=== PATIENT | male | born 1935 | race Caucasian/White ===

== ENCOUNTER 2022-12-21 10:15 | Observation (INO) ==
--- NOTE | 2022-12-21 18:43 | History & Physical Report ---
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 daily -noted this is different from his external pharmacy list but confirmed by his Continue 0.2 mg/h Nitropatch. Place on at 7 AM and take off at 7 PM. (4) Type 2 diabetes mellitus: Plan: HbA1C with AM Labs Hold metformin (5) Coronary artery disease: Plan: Per his he had stent placed in Jul 2022 although records of this are not available on admission Restart Eliquis and Plavix when able from urological perspective I am unclear on the exact reason for his Eliquis based on the patient, his and ER notes I do not see a medical condition he requires this for. Plan VTE Prophylaxis - SCDs Diet - T2DM Disposition - admit to med/surg Admission and Anticipated Discharge Date Admission Date: December 21, 2022 History of Present Illness Chief Complaint: Hematuria Primary Care Provider: Ac Newell Troy Kay is an 87 year old male who is a transfer from [facility] due to hematuria. The patient underwent cystoscopy on December [address] Schmidt due to urine retention. He is unclear how long he held his Eliquis and Plavix for around the procedure. He was informed to start continuous intermittent catheterization following this procedure which she has been forming twice a day. He reports his urine is usually red doing this. However last night he started to pass clots and the end of his penis was painful with dysuria. Therefore he went to [facility] this morning where a Brown catheter was placed and was reportedly started on continuous bladder irrigation. Urinalysis was taken which was bloody with 3+ protein, 3+ blood, nitrites positive, 1+ bilirubin, greater than 100 red blood cells, 10-15 white blood cells, 2-5 epithelial cells, few bacteria. Urine culture was sent and pending. He was given both ciprofloxacin 500 mg tablet and ceftriaxone 2 g IV for antibiotic prophylaxis. The ER physician informed me he had spoken to urology (Dr Mccormack) here and that urology which the patient transferred under the medicine team. The patient has been kept n.p.o. all day without IV fluids. He reports being on Eliquis for the last 3 to 4 months but is unable to tell me of the medical condition for which he is on this other than describing a leaky heart valve. He reports this was stopped for 2 days before cardiac catheteriza tion in July 2022 when a stent was placed. 1 to 2 days following this he was diagnosed with a stroke therefore is very concerned about coming off anticoagulation. He is unclear on his medications however I confirmed them with his over the phone. His is adamant he takes 40 mg of furosemide although the external medication reconciliation suggest that should be 20 mg. Medication list was clearly incorrect from outside emergency room with him taking Brilinta (most recently was prescribed clopidogrel and confirmed with his ), both atorvastatin and pravastatin and alendronate (not prescribed in the last year and confirmed not taking with his ). 0.2 mg/h (rather than 0.1) nitroglycerin patch confirmed with external medication reconciliation. Allergies Allergy/AdvReac Type Severity Reaction Status Date / Time No Known Allergies Unverified 03/27/10 13:01 Home Medications Medication Instructions Recorded Confirmed Type clopidogrel 75 mg tablet 75 mg PO DAILY 11/25/22 12/21/22 History magnesium 200 mg tablet 400 mg PO DAILY 11/25/22 12/21/22 History metformin 500 mg tablet,extended 500 mg PO DAILY 11/25/22 12/21/22 History release 24 hr tamsulosin 0.4 mg capsule 0.4 mg PO DAILY 11/25/22 12/21/22 History furosemide 20 mg tablet 40 mg PO DAILY 11/27/22 12/21/22 History apixaban 5 mg tablet 5 mg PO BID 12/21/22 12/21/22 History atorvastatin 80 mg tablet 80 mg PO HS 12/21/22 12/21/22 History nitroglycerin 0.2 mg/hr 1 patch topical DAILY 12/21/22 12/21/22 History transdermal 24 hour patch Past Med/Surg History Medical History Coronary artery disease History of CVA (cerebrovascular accident) History of prostate cancer Family History Sister Lung cancer Social History Smoking Status: Former smoker Hx Alcohol Use: Yes marital status: Review of Systems Review of Systems: All systems reviewed & are unremarkable except as noted in HPI & below Physical Exam Constitutional: WD/WN, vitals as above Eyes: + anicteric sclerae; normal pupil size ENMT: external ear and nose normal, oropharynx normal Respiratory: normal respiratory effort, lungs clear to auscultation Cardiovascular: RRR, no murmur, no edema Gastrointestinal (Abdomen): normal bowel sounds, soft, nontender, no hepatosplenomegaly Musculoskeletal: no cyanosis or clubbing, extremities motor strength 5/5 Skin: no rashes, warm and dry Neurologic: moves all extremities and awake; not confused Psychiatric: A+Ox3, euthymic affect Results & Data Results & Data ([facility]) Laboratory Results Abnormal lab results 12/21/22 12/21/22 12/21/22 Range/Units 18:49 18:49 18:49 RBC 3.22 L (4.70-6.10) M/uL Hgb 9.8 L (14.0-18.0) g/dl Hct 29.3 L (42.0-52.0) % MPV 8.6 L (9.4-12.4) fL Neut # (Auto) 6.96 H (1.40-6.50) K/uL Hill # (Auto) 1.00 H (0.11-0.59) K/uL PT 12.5 H (9.0-12.0) Seconds INR 1.2 H (0.9-1.1) Glucose 133 H (70-99(Fasting)) mg/dl Code Status & VTE Plan VTE Prophylaxis Plan VTE Prophylaxis will be ordered: No Reason for no VTE drug order: Contraindicated PG Care Time/CCT Total # of Minutes Spent Total Time Spent with Patient: Total time spent is greater than 50% in coordination of care (as documented) at patient's floor/unit and/or counseling patient: Coding Level of Care Code 85762 INT INP/OBS CARE 3/75MIN Diagnoses Hematuria R31.9 Urinary retention R33.9 Essential (primary) hypertension I10 Type 2 diabetes mellitus E11.9 Coronary artery disease I25.10
[2022-12-21 19:15] LABS: Basophils # (auto) 0.03 K/uL (0-0.2); Basophils % (auto) 0.3 %; Eosinophils # (auto) 0.07 K/uL (0-0.50); Eosinophils % (auto) 0.7 %; Hematocrit (blood only) 29.3 % (42.0-52.0); Hemoglobin 9.8 g/dl (14.0-18.0); Immature Granulocytes # (auto) 0.04 K/uL (0.01-0.20); Immature Granulocytes % (auto) 0.4 %; Lymphocytes # (auto) 1.59 K/uL (1.2-3.4); Lymphocytes % (auto) 16.4 %; Mean Corpuscular Hemoglobin 30.4 pg (25.0-34.0); Mean Corpuscular Hgb Conc 33.4 g/dL (32.0-36.0); Mean Platelet Volume 8.6 fL (9.4-12.4); Monocytes % (auto) 10.3 %; Neutrophils # (auto) 6.96 K/uL (1.40-6.50); Neutrophils % (auto) 71.9 %; Platelet Count 310 K/uL (130-400); RDW Coefficient of Variation 12.6 % (11.5-14.5); RDW Standard Deviation 41.5 fL (36.4-46.3); Red Blood Count 3.22 M/uL (4.70-6.10); White Blood Count 9.69 K/ul (4.8-10.8)
[2022-12-21 19:34] LABS: Alanine Aminotransferase 11 U/L (7-52); Albumin Globulin Ratio 1.2 (0.9-2); Albumin Level 3.7 gm/dl (3.4-5.0); Alkaline Phosphatase 49 U/L (34-104); Anion Gap 5 (3-11); Aspartate Aminotransferase 20 U/L (13-39); BUN Creatinine Ratio 18.9 (10-20); Bilirubin,Total 0.9 mg/dl (0.2-1.0); Blood Urea Nitrogen 23 mg/dl (6-23); Calcium 8.9 mg/dl (8.5-10.1); Carbon Dioxide 31 mmol/L (21-32); Chloride 102 mmol/L (98-107); Est GFR (African American) 62.3 ml/min; Est GFR (Non-African American) 53.7 ml/min; Globulin 3.1 gm/dl (2.5-4.0); Glucose 133 mg/dl (70-99(Fasting)); Potassium 3.6 mmol/L (3.5-5.1); Sodium 138 mmol/L (136-145); Total Protein 6.8 gm/dl (6.0-8.3)
[2022-12-21 19:47] LABS: INR 1.2 (0.9-1.1); Partial Thromboplastin Time 26.4 Seconds (21.0-31.0); Prothrombin Time 12.5 Seconds (9.0-12.0)
[2022-12-21] MEDS: LACTATED RINGER'S 1,000 ML IV SCH (19:48)
[2022-12-21] MEDS ORDERED: DEXTROSE 50% 50 ML SYRINGE IV PRN (20:14)
[2022-12-21] MEDS ORDERED: CARBOHYDRATES FOR HYPOGLYCEMIA PO PRN (20:14)
[2022-12-21] MEDS ORDERED: GLUCAGON FOR INJ 1 MG VIAL SQ PRN (20:14)
[2022-12-21] MEDS ORDERED: GLUCOSE 40% GEL 15 GM TUBE PO PRN (20:14)
[2022-12-21] MEDS ORDERED: GLUCOSE 10 TAB/TUBE PO PRN (20:14)
[2022-12-21] MEDS: INSULIN ASPART PER UNIT SC SCH (20:42)
[2022-12-21] MEDS: ATORVASTATIN 40 MG TAB PO SCH (20:44)
[2022-12-21] MEDS ORDERED: TAMSULOSIN HCL 0.4 MG CAP PO ONE (20:54)
[2022-12-22 04:21] LABS: Bacteria Urine Automated Negative (Negative); Bilirubin Urine Negative (Negative); Blood Urine 3+ (Negative); Epithelial Cell Urine Auto >30 /lpf (0-5); Glucose Urine UA Negative (Negative); Ketones Urine Negative (Negative); Leukocyte Esterase Urine 2+ (Negative); Nitrite Urine Negative (Negative); RBC Urine Automated >30 /hpf (0-4); Specific Gravity Urine 1.018 (1.000-1.030); Urobilinogen Urine Negative (Negative); pH Urine 7.5 (4.5-7.5)
[2022-12-22 04:22] LABS: Appearance Urine Turbid (Clear); Color Urine Red; Protein Urine 1+ (Negative)
[2022-12-22 04:25] LABS: Cast Urine Automated 0 /lpf (0-5)
[2022-12-22] MEDS: LACTATED RINGER'S 1,000 ML IV SCH ×3 (04:33→19:04)
[2022-12-22 07:07] LABS: Hematocrit (blood only) 26.3 % (42.0-52.0); Mean Corpuscular Hemoglobin 30.4 pg (25.0-34.0); Mean Corpuscular Hgb Conc 34.2 g/dL (32.0-36.0); Mean Corpuscular Volume 88.9 fL (80.0-100.0); Mean Platelet Volume 8.6 fL (9.4-12.4); Platelet Count 291 K/uL (130-400); RDW Coefficient of Variation 12.6 % (11.5-14.5); RDW Standard Deviation 40.9 fL (36.4-46.3); Red Blood Count 2.96 M/uL (4.70-6.10); White Blood Count 8.23 K/ul (4.8-10.8)
[2022-12-22] MEDS: NITROGLYCERIN 0.2 MG/HR PATCH TD SCH (08:15)
[2022-12-22] MEDS: FUROSEMIDE 40 MG TAB PO SCH (08:15)
[2022-12-22] MEDS: MAGNESIUM OXIDE 400 MG TAB PO SCH (08:15)
[2022-12-22] MEDS: TAMSULOSIN HCL 0.4 MG CAP PO SCH (08:15)
[2022-12-22] MEDS: INSULIN ASPART PER UNIT SC SCH ×4 (08:51→20:53)
[2022-12-22 09:02] LABS: Estimated Average Glucose 143 mg/dl; Hemoglobin A1C 6.6 % (4.5-5.6)
[2022-12-22 09:10] LABS: BUN Creatinine Ratio 18.2 (10-20); Calcium 8.2 mg/dl (8.5-10.1); Creatinine Clr Calc Pharmacy 52.3 ml/min; Est GFR (African American) 70.6 ml/min; Est GFR (Non-African American) 60.9 ml/min; Potassium 3.6 mmol/L (3.5-5.1)
[2022-12-22] MEDS: cefTRIAXone SODIUM 2,000 MG in DEXTROSE 5% 50 ML IV SCH (09:55)
--- NOTE | 2022-12-22 10:43 | Electrocardiogram Report ---
Test Reason : Blood Pressure : / mmHG Vent. Rate : 055 BPM Atrial Rate : 220 BPM P-R Int : 000 ms QRS Dur : 112 ms QT Int : 486 ms P-R-T Axes : 000 039 028 degrees QTc Int : 464 ms Atrial fibrillation with slow ventricular response Incomplete right bundle branch block Nonspecific ST abnormality Abnormal ECG When compared with ECG of 11-MAR-2007 13:09, Atrial fibrillation has replaced Sinus rhythm Incomplete right bundle branch block is now Present Confirmed by Charan Rivera ([id number]) on 12/22/2022 10:43:38 AM Referred By: Satinder Rosales Confirmed By:Charan Rivera
--- NOTE | 2022-12-22 11:11 | Urology Consultation ---
Date of Consultation December 22, 2022 Assessment & Plan (1) Hematuria: (2) Urinary retention: (3) History of prostate cancer: Plan Prostate cancer status post radiation; urinary retention; hematuria in the setting of full anticoagulation and clean intermittent catheterization Currently holding anticoagulation and antiplatelet therapy Marquis catheter in place and now draining clear urine He feels well overall and I believe he is stable for discharge home I would like to continue holding his anticoagulation/antiplatelet therapy for an additional 24 hours He will be seen in our office as an outpatient for possible voiding trial/resumption of CIC. Unfortunately, there will have to be a significant debate about the best way to manage his chronic urinary retention as his prior radiation and current medication regimen will put him at extremely high risk for recurrent bleeding History of Present Illness Attending Physician: Kwasi Quinn History of Present Illness 87-year-old gentleman with a history of radiation treatment for prostate cancer as well as urinary retention Has been performing clean intermittent catheterization but had difficulty passing a catheter Friday evening into Friday morning He developed substantial hematuria Presented to [facility] and had a Marquis catheter inserted He was subsequently transferred to [facility] Although he had a drop in his hemoglobin, he has subsequently had resolution of the hematuria and has clear urine now draining He is hemodynamically stable He is on apixaban and Plavixthese have been held for the past 24 hours He feels well overall and denies any discomfort from the catheter Allergies Allergy/AdvReac Type Severity Reaction Status Date / Time No Known Allergies Unverified 03/27/10 13:01 Home Medications Medication Instructions Recorded Confirmed Type clopidogrel 75 mg tablet 75 mg PO DAILY 11/25/22 12/21/22 History magnesium 200 mg tablet 400 mg PO DAILY 11/25/22 12/21/22 History metformin 500 mg tablet,extended 500 mg PO DAILY 11/25/22 12/21/22 History release 24 hr tamsulosin 0.4 mg capsule 0.4 mg PO DAILY 11/25/22 12/21/22 History furosemide 20 mg tablet 40 mg PO DAILY 11/27/22 12/21/22 History apixaban 5 mg tablet 5 mg PO BID 12/21/22 12/21/22 History atorvastatin 80 mg tablet 80 mg PO HS 12/21/22 12/21/22 History nitroglycerin 0.2 mg/hr 1 patch topical DAILY 12/21/22 12/21/22 History transdermal 24 hour patch Patient History Medical History Coronary artery disease History of CVA (cerebrovascular accident) History of prostate cancer Family History Sister Lung cancer Social History Smoking Status: Never smoker Hx Alcohol Use: Yes Alcohol type: beer Hx Substance Use: No Preferred Language: Estonian Communication Ability: Effective Merchandise Buyer Required: No Beliefs That Will Affect Care: None marital status: Current Living Situation: Spouse Other Information That Helps Us Care for You: Yes Feels Safe at Home: Yes Safety Concerns: Feels Safe At This Time Assistive Devices: Cane Review of Systems Constitutional: no fever, no chills and no fatigue Eyes: no worsening vision Ear, Nose, Mouth, Throat: no facial pain and no pain with swallowing Respiratory: no cough and no dyspnea Cardiovascular: no chest pain and no palpitations Gastrointestinal: no abdominal pain, no nausea and no vomiting Genitourinary: + as per Subjective / HPI Musculoskeletal: no back pain Integumentary: no rash and no urticaria Neurologic: no gait abnormality and no unsteadiness Psychiatric: no behavioral changes and no depression Endocrine: no fatigue Physical Exam Constitutional: well developed and well nourished Neck: neck nontender Respiratory: normal respiratory effort; no respiratory distress and does not use accessory muscles Cardiovascular: Extremities: no edema Gastrointestinal (Abdomen): Inspection/Auscultation: abdomen normal to inspection Percussion/Palpation: abdomen soft; abdomen nontender and no guarding Musculoskeletal: Head/Neck/Chest: normocephalic and head atraumatic Extremities: extremities normal to inspection Skin: no rashes and no lesions Trauma: no evidence of skin trauma Neurologic: awake; not obtunded Speech / Cognition: normal speech Motor/Sensory: no tremor Psychiatric: Orientation: alert and oriented x 3 Genitourinary: no CVA tenderness Lymphatic: no lymphadenopathy Results & Data ([facility]) Vital Signs (Past 12 Hours) Vital Signs Temp Pulse Resp BP Pulse Ox O2 Del Method 12/22/22 07:33 36.9 C 95 H 18 146/82 H 95 Room Air 12/22/22 00:17 37.0 C 65 18 155/75 H 96 Room Air PG Care Time/CCT Total # of Minutes Spent Total Time Spent with Patient: Total time spent is greater than 50% in coordination of care (as documented) at patient's floor/unit and/or counseling patient: Coding Level of Care Code 87647 IN/OBS CONSULT LVL 3,45M Diagnoses Hematuria R31.9 Urinary retention R33.9 History of prostate cancer Z85.46
[2022-12-22] MEDS ORDERED: CLOPIDOGREL BISULFATE 75 MG TAB PO ONE (11:42)
--- NOTE | 2022-12-22 11:56 | Hospitalist Progress Note ---
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 Given that patient has a high chance of rebeeding,and anemia patient will remain in the hospital. Continue brown catheter - will defer continuous bladder irrigation to urology Consult urology for ongoing management -will hold eliquis in the short term. Patient is unsure why he is on eliquis. records that are in the system are not clear. Urology is aware that patient will be on plavix and agrees to cancel discharge. (2) Urinary retention: Plan: Brown catheter placed in [place] ER 12/21/22 [facility] BID prior to this (3) Essential (primary) hypertension: Plan: Continue furosemide 40 mg p.o. daily -noted this is different from his external pharmacy list but confirmed by his Continue 0.2 mg/h Nitropatch. Place on at 7 AM and take off at 7 PM. (4) Type 2 diabetes mellitus: Plan: HbA1C with AM Labs Hold metformin (5) Coronary artery disease: Plan: Per his he had stent placed in Jul 2022 although records of this are not available on admission Restart Plavix Hold eliquis I am unclear on the exact reason for his Eliquis based on the patient, his and ER notes I do not see a medical condition he requires this for. Plan VTE Prophylaxis - SCDs Diet - T2DM Disposition - admit to med/surg Admission and Anticipated Discharge Date Admission Date: December 21, 2022 Subjective Patient has no new complaints. Review of Systems Review of Systems: All systems reviewed & are unremarkable except as noted in HPI & below Physical Exam Constitutional: WD/WN, vitals as above Eyes: + anicteric sclerae; normal pupil size ENMT: external ear and nose normal, oropharynx normal Respiratory: normal respiratory effort, lungs clear to auscultation Cardiovascular: RRR, no murmur, no edema Gastrointestinal (Abdomen): normal bowel sounds, soft, nontender, no hepato splenomegaly Musculoskeletal: no cyanosis or clubbing, extremities motor strength 5/5 Skin: no rashes, warm and dry Neurologic: moves all extremities and awake; not confused Psychiatric: A+Ox3, euthymic affect Results & Data Results & Data ([facility]) Vital Signs (Past 12 Hours) Vital Signs Temp Pulse Resp BP Pulse Ox O2 Del Method 12/22/22 07:33 36.9 C 95 H 18 146/82 H 95 Room Air 12/22/22 00:17 37.0 C 65 18 155/75 H 96 Room Air PG Care Time/CCT Total # of Minutes Spent Total Time Spent with Patient: Total time spent is greater than 50% in coordination of care (as documented) at patient's floor/unit and/or counseling patient: Coding Level of Care Code 38907 SUB INP/OBS CARE 3/50MIN Diagnoses Hematuria R31.9 Urinary retention R33.9 Essential (primary) hypertension I10 Type 2 diabetes mellitus E11.9 Coronary artery disease I25.10
[2022-12-22] MEDS ORDERED: Nursing to Pharmacy Communication ONE (16:02)
[2022-12-22] MEDS: ATORVASTATIN 40 MG TAB PO SCH (20:05)
[2022-12-23 06:11] LABS: Basophils # (auto) 0.03 K/uL (0-0.2); Basophils % (auto) 0.4 %; Eosinophils # (auto) 0.38 K/uL (0-0.50); Eosinophils % (auto) 4.7 %; Hematocrit (blood only) 26.5 % (42.0-52.0); Immature Granulocytes # (auto) 0.03 K/uL (0.01-0.20); Immature Granulocytes % (auto) 0.4 %; Lymphocytes # (auto) 2.25 K/uL (1.2-3.4); Mean Corpuscular Hemoglobin 30.5 pg (25.0-34.0); Mean Corpuscular Volume 89.8 fL (80.0-100.0); Mean Platelet Volume 8.7 fL (9.4-12.4); Monocytes # (auto) 0.87 K/uL (0.11-0.59); Monocytes % (auto) 10.8 %; Neutrophils # (auto) 4.47 K/uL (1.40-6.50); Neutrophils % (auto) 55.7 %; Platelet Count 279 K/uL (130-400); RDW Coefficient of Variation 12.5 % (11.5-14.5); Red Blood Count 2.95 M/uL (4.70-6.10); White Blood Count 8.03 K/ul (4.8-10.8)
[2022-12-23 06:27] LABS: BUN Creatinine Ratio 14.4 (10-20); Calcium 8.1 mg/dl (8.5-10.1); Creatinine Clr Calc Pharmacy 48.7 ml/min; Est GFR (African American) 64.8 ml/min; Est GFR (Non-African American) 55.9 ml/min; Potassium 3.7 mmol/L (3.5-5.1)
[2022-12-23] MEDS ORDERED: CLOPIDOGREL BISULFATE 75 MG TAB PO SCH (09:00)
[2022-12-23] MEDS: INSULIN ASPART PER UNIT SC SCH ×2 (09:04→13:11)
[2022-12-23] MEDS: FUROSEMIDE 40 MG TAB PO SCH (09:16)
[2022-12-23] MEDS: MAGNESIUM OXIDE 400 MG TAB PO SCH (09:17)
[2022-12-23] MEDS: TAMSULOSIN HCL 0.4 MG CAP PO SCH (09:20)
[2022-12-23] MEDS: NITROGLYCERIN 0.2 MG/HR PATCH TD SCH (09:30)
--- NOTE | 2022-12-23 09:57 | Urology Progress Note ---
Date of Service December 23, 2022 Assessment & Plan (1) Hematuria: (2) Urinary retention: (3) History of prostate cancer: Plan Prostate cancer status post radiation; urinary retention; hematuria in the setting of full anticoagulation and clean intermittent catheterization Afebrile, hemodynamically stable Labs reviewed - Creatinine 1.18, WBC 8.03, Hgb 9.0 Urine culture pending Plavix resumed yesterday, anticoagulation on hold Marquis catheter patent and draining clear urine Maintain Marquis catheter upon discharge He is feeling well and stable for discharge from perspective Recommend starting Finasteride Will arrange outpatient follow-up for possible voiding trial/resumption of CIC will sign off Admission and Anticipated Discharge Date Admission Date: December 21, 2022 Subjective Patient seen and examined at bedside this morning. He is awake, alert and sitting up in bed. Plavix resumed yesterday. Marquis is patent and draining clear yellow urine. No abdominal or suprapubic pain. No fever or chills. No nausea or vomiting. Review of Systems Constitutional: as per Subjective / HPI Gastrointestinal: as per Subjective / HPI Genitourinary: + as per Subjective / HPI Physical Exam Constitutional: well developed and well nourished; no acute distress Respiratory: normal respiratory effort; no respiratory distress and no labored breathing Gastrointestinal (Abdomen): Inspection/Auscultation: abdomen normal to inspection; abdomen not distended Neurologic: moves all extremities and awake Psychiatric: Orientation: alert and oriented x 3 Genitourinary: Marquis patent and draining clear yellow urine Results & Data ([facility]) Vital Signs (Past 12 Hours) Vital Signs Temp Pulse Resp BP Pulse Ox O2 Del Method 12/23/22 07:58 36.7 C 67 18 148/70 H 96 Room Air PG Care Time/CCT Total # of Minutes Spent Total Time Spent with Patient: Total time spent is greater than 50% in coordination of care (as documented) at patient's floor/unit and/or counseling patient: Coding Level of Care Code 22082 SUB INP/OBS CARE 1/25MIN Diagnoses Hematuria R31.9 Urinary retention R33.9 History of prostate cancer Z85.46
[2022-12-23] MEDS: cefTRIAXone SODIUM 2,000 MG in DEXTROSE 5% 50 ML IV SCH (10:37)
[2022-12-23] MEDS ORDERED: FINASTERIDE 5 MG TAB PO ONE (11:30)
--- NOTE | 2022-12-23 12:41 | Discharge Summary ---
Date of Service December 23, 2022 Admission HPI Per Admitting Provider Troy Kay is an 87 year old male who is a transfer from [facility] due to hematuria. The patient underwent cystoscopy on December [address] Schmidt due to urine retention. He is unclear how long he held his Eliquis and Plavix for around the procedure. He was informed to start continuous intermittent catheterization following this procedure which she has been forming twice a day. He reports his urine is usually red doing this. However last night he started to pass clots and the end of his penis was painful with dysuria. Therefore he went to [facility] this morning where a Brown catheter was placed and was reportedly started on continuous bladder irrigation. Urinalysis was taken which was bloody with 3+ protein, 3+ blood, nitrites positive, 1+ bilirubin, greater than 100 red blood cells, 10-15 white blood cells, 2-5 epithelial cells, few bacteria. Urine culture was sent and pending. He was given both ciprofloxacin 500 mg tablet and ceftriaxone 2 g IV for antibiotic prophylaxis. The ER physician informed me he had spoken to urology (Dr Mccormack) here and that urology which the patient transferred under the medicine team. The patient has been kept n.p.o. all day without IV fluids. He reports being on Eliquis for the last 3 to 4 months but is unable to tell me of the medical condition for which he is on this other than describing a leaky heart valve. He reports this was stopped for 2 days before cardiac catheterization in July 2022 when a stent was placed. 1 to 2 days following this he was diagnosed with a stroke therefore is very concerned about coming off anticoagulation. He is unclear on his medications however I confirmed them with his over the phone. His is adamant he takes 40 mg of furosemide although the external medication reconciliation suggest that should be 20 mg. Medication list was clearly incorrect from outside emergency room with him taking Brilinta (most recently was prescribed clopidogrel and confirmed with his ), both atorvastatin and pravastatin and alendronate (not prescribed in the last year and confirmed not taking with his ). 0.2 mg/h (rather than 0.1) nitroglycerin patch confirmed with external medication reconciliation. Principal Diagnosis hematuria as stated below Discharge Exam Constitutional WD/WN, vitals as above Eyes + anicteric sclerae; normal pupil size ENMT external ear and nose normal, oropharynx normal Respiratory normal respiratory effort, lungs clear to auscultation Cardiovascular RRR, no murmur, no edema Gastrointestinal (Abdomen) normal bowel sounds, soft, nontender, no hepatosplenomegaly Musculoskeletal no cyanosis or clubbing, extremities motor strength 5/5 Skin no rashes, warm and dry Neurologic moves all extremities and awake; not confused Psychiatric A+Ox3, euthymic affect Discharge Data Allergies Allergy/AdvReac Type Severity Reaction Status Date / Time No Known Allergies Unverified 03/27/10 13:01 Consultations 12/21/22 18:50 Consult Urology Routine Hospital Course (1) Hematuria: Hematuria due to anticoagulation and antiplatelet drug therapy 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 Given that patient has a high chance of rebeeding,and anemia patient was monitored overnight after plavix dose Continue brown catheter - appreciate urology input Consult urology for ongoing management -will hold eliquis in the short term. Patient is unsure why he is on eliquis. records that are in the system are not clear. Urology is aware that patient will be on plavix Patient will be discharged on finasteride. (2) Urinary retention: Brown catheter placed in [place] ER 12/21/22 [facility] BID prior to this (3) Essential (primary) hypertension: Continue furosemide 40 mg p.o. daily -noted this is different from his external pharmacy list but confirmed by his Continue 0.2 mg/h Nitropatch. Place on at 7 AM and take off at 7 PM. (4) Type 2 diabetes mellitus: HbA1C with AM Labs Hold metformin (5) Coronary artery disease: Per his he had stent placed in Jul 2022 although records of this are not available on admission Restart Plavix Hold eliquis I am unclear on the exact reason for his Eliquis based on the patient, his and ER notes I do not see a medical condition he requires this for. Total Time Total Time Spent Total Time Spent (In Minutes): 35 Discharge Plan Discharge Items Patient Disposition: Home - Self-Care Reason For Visit: GROSS HEMATURIA Discharge Diagnosis: hematuria Activity: Resume your previous activity Non-emergency contact: Primary Care Provider Call non-emergency contact if: you have any medication questions Follow-up/Referrals: Dc Wood DO [Outside Practitioners] - 12/26/22 2:00 pm Diet: Heart Healthy Addtl Attending Provider Instructions: Good morning Mr. Kay, We will continue with Plavix as this medication will help keep your heart stent open, and prevent this from clotting. We will hold the Eliquis until followup with Urology. We will add finasteride to help make it easier for you to urinate. You can start your home dose of finasteride tomorrow in the morning. You will be discharge with a urinary catheter. I am glad you tolerated the plavix. It was a pleasure taking care of you. Best regards, Kwasi Quinn Recommend followup with PCP in 1-2 weeks. Pending Studies at Discharge: No Stand-Alone Forms: My [facility] Resident Research, Smoking Cessation Medications and DC Order Prescriptions: New finasteride 5 mg tablet 5 mg PO DAILY Qty: 30 0RF Continued tamsulosin 0.4 mg capsule 0.4 mg PO DAILY magnesium 200 mg tablet 400 mg PO DAILY metformin 500 mg tablet extended release 24 hr 500 mg PO DAILY clopidogrel 75 mg tablet 75 mg PO DAILY furosemide 20 mg tablet 40 mg PO DAILY atorvastatin 80 mg tablet 80 mg PO HS nitroglycerin 0.2 mg/hr patch 24 hour 1 patch topical DAILY Discontinued apixaban 5 mg Tablet 5 mg PO BID Discharge Orders: Discharge Order (Routine); Ordered 12/23/22 Ordered By: Kwasi Dao/Other Patient Handouts: Type 2 Diabetes Admission Data Admit Date/Time: 12/21/22 18:09 Attending Provider: Kwasi Quinn Admit Provider: Satinder Rosales Primary Care Provider: Ac Newell Other Providers: Usman Mccormack Other Interventions: Discharge Summary Assessment (RN) Last Done: 12/23/22 12:24 Coding Level of Care Code 34314 INP/OBS DISCH >30 MIN Diagnoses Hematuria R31.9 Urinary retention R33.9 Essential (primary) hypertension I10 Type 2 diabetes mellitus E11.9 Coronary artery disease I25.10
== END 2022-12-23 14:11 | disposition home or self-care (01) | DRG 813 ==
LOC: SUATTDRO 18:09 → INTOOBSV 18:09 → 3E 18:09
DX: D68.32 Hemorrhagic disorder due to extrinsic circulating anticoagulants; Z79.01 Long term (current) use of anticoagulants; Z92.3 Personal history of irradiation; Z79.84 Long term (current) use of oral hypoglycemic drugs; R33.9 Retention of urine, unspecified; T45.515A Adverse effect of anticoagulants, initial encounter; C61 Malignant neoplasm of prostate; Z95.5 Presence of coronary angioplasty implant and graft; E11.9 Type 2 diabetes mellitus without complications; S37.30XA Unspecified injury of urethra, initial encounter; R31.9 Hematuria, unspecified; Z79.02 Long term (current) use of antithrombotics/antiplatelets; Z87.891 Personal history of nicotine dependence; I25.10 Atherosclerotic heart disease of native coronary artery without angina pectoris; T45.525A Adverse effect of antithrombotic drugs, initial encounter; Y92.009 Unspecified place in unspecified non-institutional (private) residence as the place of occurrence of the external cause; Z86.73 Personal history of transient ischemic attack (TIA), and cerebral infarction without residual deficits